=== PATIENT | male | born 1985 | race Caucasian/White ===

== ENCOUNTER 2018-02-14 13:03 | Emergency (ER) | payer MEDICAID ==
[~2018-02-14] VITALS: Ht 172.7 cm; Wt 88.9 kg
[2018-02-14 13:32] VITALS: RESP 20; Ht 172.7 cm; Wt 88.9 kg
[2018-02-14] MEDS ORDERED: CLINDAMYCIN 600 MG INJ IM ONE (16:30)
[2018-02-14] MEDS ORDERED: HYDROCODONE/APAP (5/325) TAB PO ONE (16:30)
[2018-02-14] MEDS ORDERED: predniSONE 20 MG TAB PO ONE (16:30)
--- NOTE | 2018-02-14 16:31 | ERD ---
ER Documentation Chief Complaint Chief Complaint left lower dental swelling, on amoxicillin x4 days HPI 32-year-old male, previously healthy, presents to the emergency department, referred by his dentist for IM antibiotics. The patient was diagnosed with a lower dental abscess, and started on amoxicillin 4 days ago with very modest improvement of the symptoms. He denies fevers, no chills, no diarrhea or constipation, no difficulty swallowing. ROS All systems reviewed and are negative except as per history of present illness. Medications Home Meds Active Scripts Hydrocodone/Acetaminophen ([place] 5-325 Tablet) 1 Each Tablet, 1 TAB PO TID PRN for PAIN, #7 TAB Prov:ADDY CORDOBA MD 02/14/18 Allergies Allergies: Coded Allergies: No Known Allergy (Unverified , 02/14/18) PMhx/Soc Medical and Surgical Hx: pt denies Medical Hx, pt denies Surgical Hx Hx Alcohol Use: No Hx Substance Use: No Hx Tobacco Use: Yes Smoking Status: Current every day smoker Physical Exam Vitals Vital Signs Date Temp Pulse Resp B/P (MAP) Pulse Ox O2 O2 Flow FiO2 Time Delivery Rate 02/14/18 99.0 98 20 139/95 98 13:32 (110) Physical Exam Const: No acute distress Head: Atraumatic Eyes: Normal Conjunctiva ENT: Poor oral dentition with multiple cavities, left lower dental abscess area, indurated and tender to palpation.. Normal External Ears and nose. Neck: Full range of motion. No meningismus. Resp: Clear to auscultation bilaterally Cardio: Regular rate and rhythm, no murmurs Abd: Soft, non tender, non distended. Normal bowel sounds Skin: No petechiae or rashes Back: No midline or flank tenderness Ext: No cyanosis, or edema Neur: Awake and alert Psych: Normal Mood and Affect Results 24 hrs Current Medications Medications Dose Sig/Alisa Start Time Status Last (Trade) Ordered Route PRN Stop Time Admin Dose Reason Admin Clindamycin 600 mg ONCE ONCE 02/14/18 DC Phosphate IM 16:30 02/14/18 (Cleocin) 16:37 Prednisone 40 mg ONCE ONCE 02/14/18 DC 02/14/18 (Prednisone) PO 16:30 02/14/18 16:40 16:37 1 tab ONCE ONCE 02/14/18 DC Acetaminophen PO 16:30 02/14/18 / 16:37 Hydrocodone Bitart ([place] (5/325)) Clindamycin 600 mg ONCE ONCE 02/14/18 DC 02/14/18 Phosphate IM 17:00 02/14/18 16:43 (Cleocin) 17:01 Procedures/MDM Differential diagnosis include but not limited to: Dental abscess, parotitis, sialoadenitis, lymphadenopathy, facial abscess. Low suspicion for systemic infection. Physical examination and clinical presentation consistent most likely with d ental abscess. During the ED course the patient remained stable, no new complaints. At this time, the patient prefers conservative management with antibiotics, he is going to continue with amoxicillin as prescribed by his dentist. The patient is stable to be treated outpatient and will be discharged home. Some side effects of prescribed medications (headache, rash, nausea, vomiting, diarrhea, drowsiness, habituation, bleeding, hypertension, interactions with other medications) were reviewed. The patient was instructed to follow up with the primary care provider and dentist in the next 48h. If symptoms persist, worsen or new symptoms develop, then patient should return to the ED immediately. Instructions explained and given directly by me to the patient with acknowledgment and demonstrated understanding. Disclaimer: Inadvertent spelling and grammatical errors are likely due to [employer]/dictation software use and do not reflect on the overall quality of patient care. Also, please note that the electronic time recorded on this note does not necessarily reflect the actual time of the patient encounter. Departure Diagnosis: Primary Impression: Dental abscess Condition: Stable Additional Instructions: Thank you very much for allowing us to participate in your care. Your health and safety is our top priority at [facility]. Call your primary care doctor TOMORROW for an appointment during the next 2-4 days and bring all the information and medications prescribed. Have prescriptions filled and follow precisely the directions on the label. If the symptoms get worse and your provider is unavailable, return to the Emergency Department immediately. ADDY CORDOBA MD Feb 14, 2018 16:31
[2018-02-14] MEDS ORDERED: CLINDAMYCIN 300 MG INJ IM ONE (17:00)
[2018-02-14] MEDS ORDERED: HYDR-4011 PO (17:15)
[2018-02-14 17:24] VITALS: BP 130/70; PULSE 74
== END 2018-02-14 17:25 | disposition home or self-care (01) ==
LOC: FTE 13:03
DX: K04.7 Periapical abscess without sinus (principal); F17.210 Nicotine dependence, cigarettes, uncomplicated
CPT/HCPCS: 96372; J7512; Z7502; Z7610